=== PATIENT | female | born 1975 | race Caucasian/White ===

== ENCOUNTER 2018-05-24 00:40 | Emergency (ER) | payer OTHER ==
[~2018-05-24] VITALS: Ht 162.6 cm; Wt 68.0 kg
[~2018-05-24 00:40] MED LIST: ALBU90OI61 INH; Acetaminophen-1 EAC1 PO; CEPH500 PO; CLIN300 PO; CODGUAEL PO; CYCL10 PO; DOXY100 PO; HYDACE5 PO; HYDACE5325 PO; HYDR1TAB94 PO; METPRE4DP PO; NAPR500 PO; OMEP20ER PO; OXYACE5T PO; OXYC5 PO; PROM25 PO; RXHYDACE PO; RXSULTRIDS PO; Robaxin-750750 MG PO; SULTRIDS PO
== END 2018-05-24 02:47 | disposition left against medical advice (07) ==
LOC: ER 00:40
DX: Z53.21 Procedure and treatment not carried out due to patient leaving prior to being seen by health care provider (principal)

== ENCOUNTER 2018-06-01 19:18 | Emergency (ER) | payer MEDICAID ==
[~2018-06-01] VITALS: Ht 162.6 cm; Wt 72.6 kg
[2018-06-01 20:14] LABS: BASOPHILS ABSOLUTE AUTO 0.01 K/mm3 (0.00-0.23); BASOPHILS PERCENT AUTO 0 % (0-2); EOSINOPHILS PERCENT AUTO 0 % (0-6); Hematocrit 39.7 % (33.0-51.0); Hemoglobin 13.6 g/dL (11.5-16.0); IMMATURE GRAN ABSOLUTE AUTO 0.05 K/mm3 (0.00-0.10); IMMATURE GRAN PERCENT AUTO 1 % (0-1); LYMPHOCYTES ABSOLUTE AUTO 0.32 K/mm3 (0.84-5.20); LYMPHOCYTES PERCENT AUTO 4 % (21-46); MONOCYTES ABSOLUTE AUTO 0.42 K/mm3 (0.16-1.47); MONOCYTES PERCENT AUTO 6 % (4-13); Mean Corpuscular HGB 29.6 pg (26.0-34.0); Mean Corpuscular HGB Conc 34.3 g/dL (31.5-36.5); Mean Corpuscular Volume 87 fL (80-100); Mean Platelet Volume 9.6 fL (9.1-12.4); NEUTROPHILS ABSOLUTE AUTO 6.85 K/mm3 (1.96-9.15); NEUTROPHILS PERCENT AUTO 90 % (41-73); Platelet Count 191 K/mm3 (150-400); RDW Coefficient Variation 13.3 % (11.7-14.2); RDW Standard Deviation 41.7 fL (35.1-46.3); Red Blood Cell Count 4.59 M/mm3 (3.80-5.20); White Blood Cell Count 7.65 K/mm3 (4.00-11.30)
[2018-06-01 20:37] LABS: Alanine Aminotransfer (ALT/SGP 90 U/L (12-78); Albumin, Blood 3.2 g/dL (3.4-5.0); Albumin/Globulin Ratio 0.8 (0.8-1.8); Alk Phos 80 U/L (50-136); Anion Gap 9 mmol/L (6-16); Aspartate Aminotrans (AST/SGOT 86 U/L (12-37); Bilirubin, Total 0.6 mg/dL (0.1-1.0); Blood Urea Nitrogen 8 mg/dL (8-24); Bun/Creatinine Ratio 13.9 (12.0-20.0); CO2, Blood 23 mmol/L (21-32); Calcium, Blood 8.4 mg/dL (8.5-10.1); Chloride, Blood 101 mmol/L (98-108); Creatinine, Blood 0.58 mg/dL (0.40-1.00); Globulin, Blood 4.2 g/dL (2.2-4.0); Glomerular Filtration Rate >60 (60-); Glucose, Blood 90 mg/dL (70-99); Potassium, Blood 3.6 mmol/L (3.5-5.5); Sodium, Blood 133 mmol/L (136-145); Total Protein, Blood 7.4 g/dL (6.4-8.2)
[2018-06-01 21:56] LABS: Source, Urine Clean Catch
[2018-06-01 21:59] LABS: Bilirubin, Urine Neg (Neg); Blood, Urine 5+ (Neg); Glucose Qualitative, Urine Neg (Neg); Ketones, Urine Neg (Neg); Leukocyte Esterase, Urine 1+ (Neg); Nitrite, Urine Neg (Neg); Protein, Urine 2+ (Neg); Urobilinogen, Urine 1+ (Normal)
[2018-06-01 22:05] LABS: Appearance, Urine Hazy (Clear); Bacteria Few /hpf; Color, Urine Amber (P-Yellow); Red Blood Cells, Urine 25-50 /hpf (0-2); Squamous Epithelial Cells Mod /hpf (Few)
[2018-06-01 22:06] LABS: Amorphous Light ([, 0-Heavy]); Mucus Light ([, 0-Heavy])
[2018-06-01 22:21] LABS: U Amphetamine Screen DETECTED; U Barbituate Screen Not Detected; U Benzodiazapine Screen Not Detected; U Buprenorphine Screen Not Detected; U Cannabinoids Screen DETECTED; U Cocaine Screen Not Detected; U Methadone Screen Not Detected; U Methamphetamine Screen DETECTED; U Opiates Screen Not Detected; U Oxycodone Screen DETECTED; U Phencyclidine Screen Not Detected; U Propoxyphene Screen Not Detected
== END 2018-06-02 00:42 | disposition home or self-care (01) ==
LOC: ER 19:18
PROVIDERS: Emergency Medicine
DX: R10.84 Generalized abdominal pain (principal); M54.16 Radiculopathy, lumbar region; R11.0 Nausea
CPT/HCPCS: 36415; 74176; 80053; 81001; 81025; 83690; 85025; 87086; 96361; 96374; 99284-25; J1630; J1885; J3010; J7030

== ENCOUNTER → 2020-03-04 | Outpatient (CLI) | payer OTHER | END | disposition home or self-care (01) | LOC: LAB EV 11:34 → LAB SHORT 11:34 | DX: J40 Bronchitis, not specified as acute or chronic (principal) | CPT/HCPCS: U0002 ==

== ENCOUNTER 2020-06-10 04:48 | Emergency (ER) | payer OTHER ==
[~2020-06-10] VITALS: Ht 162.6 cm; Wt 81.7 kg
[2020-06-10] MEDS ORDERED: LOSA25 PO (05:19)
[2020-06-10] MEDS ORDERED: DOXY100 PO (06:14)
== END 2020-06-10 06:21 | disposition home or self-care (01) ==
LOC: ER 04:48
DX: L03.115 Cellulitis of right lower limb (principal); L02.415 Cutaneous abscess of right lower limb; F17.210 Nicotine dependence, cigarettes, uncomplicated; Z79.899 Other long term (current) drug therapy
CPT/HCPCS: 99283

== ENCOUNTER → 2020-06-11 | Outpatient (CLI) | payer OTHER ==
[~2020-06-11] MED LIST changes: +LOSA25 PO
== END | disposition home or self-care (01) ==
LOC: LAB SHORT 17:54 → LAB 17:54
DX: S71.102A Unspecified open wound, left thigh, initial encounter (principal)
CPT/HCPCS: 87070; 87075; 87077; 87147; 87186; 87205

== ENCOUNTER 2021-07-12 02:04 | Emergency (ER) | payer OTHER ==
[~2021-07-12] VITALS: Ht 162.6 cm; Wt 72.6 kg
[2021-07-12] MEDS ORDERED: Bactrim Ds Tab1 EACH PO (03:04)
[2021-07-12] MEDS ORDERED: Keflex500 MG PO (03:04)
== END 2021-07-12 03:10 | disposition home or self-care (01) ==
LOC: ER 02:04
DX: L03.116 Cellulitis of left lower limb (principal); F17.210 Nicotine dependence, cigarettes, uncomplicated
CPT/HCPCS: 99282; A9270

== ENCOUNTER 2021-07-12 18:59 | Emergency (ER) | payer OTHER ==
[~2021-07-12] VITALS: Ht 162.6 cm; Wt 77.1 kg
[~2021-07-12 18:59] MED LIST changes: +Bactrim Ds Tab1 EACH PO; +Keflex500 MG PO
== END 2021-07-12 19:13 | disposition home or self-care (01) ==
LOC: ER 18:59
DX: L03.115 Cellulitis of right lower limb (principal); L03.116 Cellulitis of left lower limb; F17.210 Nicotine dependence, cigarettes, uncomplicated
CPT/HCPCS: 99283

== ENCOUNTER 2021-07-15 23:17 | Emergency (ER) | payer OTHER ==
[~2021-07-15] VITALS: Ht 162.6 cm; Wt 72.6 kg
== END 2021-07-15 23:37 | disposition home or self-care (01) ==
LOC: ER 23:17
DX: L03.116 Cellulitis of left lower limb (principal); F17.210 Nicotine dependence, cigarettes, uncomplicated
CPT/HCPCS: 99282

== ENCOUNTER 2022-04-10 01:45 | Emergency (ER) | payer SELFPAY ==
[~2022-04-10] VITALS: Ht 162.6 cm; Wt 81.7 kg
== END 2022-04-10 05:54 | disposition home or self-care (01) ==
LOC: ER 01:45
DX: S80.12XA Contusion of left lower leg, initial encounter (principal); S80.11XA Contusion of right lower leg, initial encounter; F17.210 Nicotine dependence, cigarettes, uncomplicated; X58.XXXA Exposure to other specified factors, initial encounter; Y92.9 Unspecified place or not applicable
CPT/HCPCS: 73590; A9270

== ENCOUNTER 2025-10-14 15:12 | Emergency (ER) | payer OTHER ==
[~2025-10-14] VITALS: Ht 162.6 cm; Wt 70.8 kg
[~2025-10-14 15:12] MED LIST changes: +PHENA200 PO
[2025-10-14 17:01] LABS: BASOPHILS ABSOLUTE AUTO 0.03 K/mm3 (0.00-0.23); BASOPHILS PERCENT AUTO 1 % (0-2); EOSINOPHILS ABSOLUTE AUTO 0.25 K/mm3 (0.00-0.68); EOSINOPHILS PERCENT AUTO 4 % (0-6); Hematocrit 35.5 % (33.0-51.0); Hemoglobin 11.2 g/dL (11.5-16.0); IMMATURE GRAN ABSOLUTE AUTO 0.02 K/mm3 (0.00-0.10); IMMATURE GRAN PERCENT AUTO 0 % (0-1); LYMPHOCYTES ABSOLUTE AUTO 1.54 K/mm3 (0.84-5.20); LYMPHOCYTES PERCENT AUTO 25 % (21-46); MONOCYTES ABSOLUTE AUTO 0.53 K/mm3 (0.16-1.47); MONOCYTES PERCENT AUTO 9 % (4-13); Mean Corpuscular HGB Conc 31.5 g/dL (31.5-36.5); Mean Corpuscular Volume 81 fL (80-100); NEUTROPHILS ABSOLUTE AUTO 3.82 K/mm3 (1.96-9.15); NEUTROPHILS PERCENT AUTO 62 % (41-73); NRBC ABSOLUTE 0.00 K/mm3 (0.00-0.02); NRBC Auto 0.0 /100 WBC (0.0-0.2); Platelet Count 257 K/mm3 (150-400); RDW Coefficient Variation 15.2 % (11.7-14.2); RDW Standard Deviation 43.9 fL (35.1-46.3)
[2025-10-14 17:24] LABS: Alanine Aminotransfer (ALT/SGP 16.0 U/L (12-78); Albumin, Blood 3.4 g/dL (3.4-5.0); Albumin/Globulin Ratio 0.9 (0.8-1.8); Anion Gap 7.0 mmol/L (3-11); Aspartate Aminotrans (AST/SGOT 11.0 U/L (12-37); Bilirubin, Total 0.3 mg/dL (0.1-1.0); Blood Urea Nitrogen 13.0 mg/dL (8-24); CO2, Blood 26.0 mmol/L (21-32); Calcium, Blood 8.4 mg/dL (8.5-10.1); Chloride, Blood 107.0 mmol/L (98-108); Creatinine, Blood 0.69 mg/dL (0.40-1.00); Globulin, Blood 3.6 g/dL (2.2-4.0); Glucose, Blood 90.0 mg/dL (70-99); Potassium, Blood 3.7 mmol/L (3.5-5.5); Sodium, Blood 136.0 mmol/L (136-145); Total Protein, Blood 7.0 g/dL (6.4-8.2)
[2025-10-14 17:40] VITALS: BP 153/101
[2025-10-14] MEDS ORDERED: Ondansetron HCl 2 MG / ML 2ML Vial IV ONE (18:00)
[2025-10-14] MEDS ORDERED: NS 1,000 ML IV SCH (18:00)
[2025-10-14] MEDS ORDERED: Ketorolac Tromethamine 15mg Vial IV ONE (18:05)
[2025-10-14 18:15] LABS: Source, Urine Clean Catch
[2025-10-14 18:19] LABS: Bilirubin, Urine Neg (Neg); Color, Urine Yellow (P-Yellow); Glucose Qualitative, Urine Neg (Neg); Ketones, Urine Neg (Neg); Leukocyte Esterase, Urine Neg (Neg); Protein, Urine Neg (Neg); Specific Gravity, Urine 1.010 (1.003-1.022); Urobilinogen, Urine 1+ (Normal)
[2025-10-14] MEDS ORDERED: RX Prepack 2 Tabs Ondansetron ODT 4MG UD ONE (19:10)
[2025-10-14] MEDS ORDERED: ONDA4ODT MM (19:10)
== END 2025-10-14 19:30 | disposition home or self-care (01) ==
LOC: ER 15:12
PROVIDERS: Student in an Organized Health Care Education/Training Program
DX: R10.A2 Flank pain, left side (principal); R11.2 Nausea with vomiting, unspecified; F17.210 Nicotine dependence, cigarettes, uncomplicated; Z90.49 Acquired absence of other specified parts of digestive tract
CPT/HCPCS: 71046; 74177; 80053; 81003; 83605; 85025; 96361; 96374; 96375; 99284-25; A9270; J1885; J2405; J7030; Q9967